=== PATIENT | female | born 2005 | race African-American/Black ===

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

== ENCOUNTER 2023-01-04 14:11 | Emergency (ER) | payer SELFPAY ==
[2023-01-04 14:59] VITALS: BP 134/82; PULSE 95; RESP 17; TEMP 36.4; O2SAT 99; BMI 27.9
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
== END 2023-01-04 15:15 | disposition home or self-care (01) ==
PROVIDERS: Emergency Provider Emergency Medicine; PCP Family Medicine
DX: Z04.1 Encounter for examination and observation following transport accident (principal); M79.10 Myalgia, unspecified site
CPT/HCPCS: 99282; 99283